=== PATIENT | male | born 1945 | race Caucasian/White ===

== ENCOUNTER → 2017-03-08 | Outpatient (CLI) | payer MEDICARE ==
[~2017-03-08] VITALS: Ht 180.3 cm; Wt 93.4 kg
[~2017-03-08] MED LIST: ALLO100T PO; ALLO300T PO; AMINOPHYLLINE IV ONE; AMLO10TA2 PO; ASCO500C PO; ASPI-484 PO; ATOR10TA PO; ATOR40TA PO; BEE580CA PO; CHOL400T10 PO; CINN500C2 PO; CLOP75TA22 PO; GARL1CAP PO; GLUC-103 PO; GLYB1TAB10 PO; HYDR12.58 PO; LEXISCAN IV ONE; LISI10TA2 PO; LOSA100T6 PO; MELO-174 PO; METO25TA9 PO; MULT-16 PO; NITR0.4T SL; NITR0.4T8 SL; VITA400C36 PO; [UNRECOGNIZED DRUG - CODE] PO
[2017-03-08 14:10] LABS: BASOPHIL % 0.3 % (0.0-0.2); EOSINOPHIL # 0.2 10^3/uL (0.0-0.2); EOSINOPHIL % 1.6 % (0.0-5.0); HEMATOCRIT 43.3 % (37.0-53.0); HEMOGLOBIN 14.7 g/dL (13.9-16.3); LYMPHOCYTES % 9.2 % (24.0-44.0); MEAN CELL HGB 31.7 pg (26-34); MEAN CELL HGB CONCENTRATION 33.9 g/dL (33-37); MEAN CORP VOLUME 93.5 fL (78-100); MEAN PLATELET VOLUME 9.7 fL (7.8-11.0); MONOCYTES # 0.8 10^3/uL (0.3-0.8); MONOCYTES % 6.9 % (5.0-12.0); NEUTROPHIL # 8.9 10^3/uL (1.8-7.7); NEUTROPHILS % 81.5 % (41.0-85.0); RED CELL DISTRIBUTION WIDTH 13.5 % (11.5-14.5); WHITE BLOOD CELL 10.9 10^3/uL (4.5-11.0)
[2017-03-08 14:30] LABS: CALCIUM 9.3 mg/dL (8.4-10.5); CARBON DIOXIDE 24.1 mmol/L (20.0-32); CHOLESTEROL 159 mg/dL (120-240); GLUCOSE 199 mg/dL (70-110); HDL CHOLESTEROL 45 mg/dL (32-96)
--- NOTE | 2017-03-09 14:06 | STRESS ---
DATE OF SERVICE: 03/08/2017 STRESS TEST WITH NUCLEAR IMAGING STUDY INDICATIONS: A 71-year-old gentleman with hyperlipidemia, diabetes mellitus, history of coronary artery disease with prior MIs in 2014, presented with chest pain and occasional shortness of breath. Stress test was recommended to follow up. The patient presented to the Stress Lab in a fasting condition on 03/08/2017, signed a proper consent with all questions answered. The patient was injected 0.4 mg of regadenoson followed by the stress dose of technetium sestamibi. Blood pressure at baseline was 135/80, heart rate of 79. After 1 minute of infusion blood pressure was 111/47, heart rate of 78 bpm. The patient developed some dizziness, nausea and his blood pressure dropped to 92/57 with a heart rate of 64. Aminophylline has to be given to reverse the effect. Recovery phase was uneventful. No EKG changes of ischemia noted. Myocardial perfusion imaging study was performed using 12.18 mCi of technetium sestamibi resting dose and 33.7 mCi of stress dose. Myocardial perfusion imaging study showed the followin. Study quality was fair. Attenuation artifact was corrected. Prone position was obtained. 2. Myocardial perfusion imaging study showed small anterobasal perfusion defect, reversible, suggestive of ischemia of a small area of the anterior wall. 3. Gated function study showed normal wall motion and wall thickening. EF was 60%, stroke volume 53 mL. IMPRESSION: 1. Abnormal stress portion of Lexiscan with hypotensive effect and a systolic blood pressure drop of more than [address] changes of ischemia noted or arrhythmia. 3. Myocardial perfusion imaging study showed a small anterobasal perfusion defect, reversible. 4. This study still qualifies for low to moderate risk for obstructive disease. Clinical correlation is recommended, especially for the abnormal stress portion of the examination. Keely Brown MD DR: EZE/oralia JOB# [id number] GIO
--- NOTE | 2017-03-16 11:35 | ECHO ---
DATE OF SERVICE: 03/08/2017 INDICATIONS: A 71-year-old gentleman with hypertension, elected for an echocardiographic study for evaluation of any wall motion abnormality, structural heart disease or cardiac valvular dysfunction for longstanding hypertension and possible hypertensive cardiomyopathy. FINDINGS: 1. Study quality was fair. 2. Underlying rhythm was sinus rhythm. 3. LV function showed an EF around 50%. Some apical hypokinesia. There is a mild degree of concentric LVH. LV dimensions showed increased cavity size. The end-diastolic dimension was around 6.5 cm. 4. RV size and EF were normal. 5. Both atria showed normal size. 6. Mitral valve was calcified minimally, grade 1 diastolic dysfunction was apparent with E to A reversal, no mitral stenosis. 7. Aortic valve showed aortic regurgitation, [id number]. Aortic valve mean velocity was 1.2 m/sec. Aortic valve area was 2.3 cm2 by VTI method, aortic sclerosis suggested, no stenosis. 8. Mild tricuspid regurgitation. 9. Normal pulmonary artery systolic pressure. 10. for the RV was 2.2 cm, normal. 11. No pericardial effusion. 12. Inferior vena cava was normal in size at 1.5 cm. IMPRESSION: 1. Preserved EF around 50%. 2. Moderate concentric LVH. 3. Apical hypokinesia. 4. Aortic sclerosis without stenosis. 5. Mild to moderate aortic regurgitation. 6. Calcified mitral valve without stenosis or regurgitation. 7. Grade 1 diastolic dysfunction. 8. Normal pulmonary artery systolic pressure. 9. No pericardial effusion. 10. IVC size was normal. Keely Brown MD DR: EZE/oralia JOB# [id number]
== END | disposition home or self-care (01) ==
LOC: RAD 08:33
PROVIDERS: ATTEND Internal Medicine
DX: I10 Essential (primary) hypertension (principal); E78.5 Hyperlipidemia, unspecified; R07.9 Chest pain, unspecified; E11.9 Type 2 diabetes mellitus without complications; R06.02 Shortness of breath
CPT/HCPCS: 36415; 78452; 80048; 80061; 85025; 93017; 93307; A9500; J0280; J2785

== ENCOUNTER 2017-04-05 01:14 | Inpatient (IN) | payer MEDICARE ==
[2017-04-03 10:03] VITALS: BP 145/93
--- NOTE | 2017-04-03 14:22 | DIREP ---
PROCEDURE:CHEST 2 VIEWS COMPARISON:None. INDICATIONS:PRE-OP HEART CATH FINDINGS: Frontal and lateral views of the chest are provided. LUNGS/PLEURA:No significant pulmonary parenchymal abnormalities. No effusion or pneumothorax. VASCULATURE:Normal. Unremarkable pulmonary vasculature. CARDIAC:Heart size is normal. Mild calcified plaque at the aortic knob. MEDIASTINUM:Normal. No visible mass or adenopathy. BONES:Remote healed fracture of the right clavicular midshaft. Mild degenerative changes involving the right acromioclavicular joint thoracic spine. No acute abnormality. OTHER:Negative. CONCLUSION: No acute cardiopulmonary abnormality. Dictated by: Lucien Gonzalez M.D. On 04/03/2017 at 02:20 PM
[~2017-04-05] VITALS: Ht 180.3 cm; Wt 94.3 kg
[~2017-04-05 01:14] MED LIST changes: -AMINOPHYLLINE IV ONE; +ATOR20TA PO; +GABA300C10 PO; +GLIM4TAB2 PO; -LEXISCAN IV ONE; +METF10002 PO; +NEBI5TAB2 PO; +PANT40TA5 PO; +VALS80TA3 PO
[2017-04-05] MEDS ORDERED: BENADRYL PO ONE ×2 (06:00→08:00)
[2017-04-05] MEDS ORDERED: NS 1000ML 1,000 ML ONE (06:37)
[2017-04-05] MEDS ORDERED: SUBLIMAZE ONE (06:38)
[2017-04-05] MEDS ORDERED: CALAN ONE (06:38)
[2017-04-05] MEDS ORDERED: VERSED ONE (06:38)
[2017-04-05] MEDS ORDERED: HEPARIN ONE ×2 (06:38→11:15)
[2017-04-05] MEDS ORDERED: XYLOCAINE ONE (06:39)
[2017-04-05] MEDS ORDERED: NITROGLYCERIN 25MG/D5W 250ML 250 ML IV ONE (06:39)
[2017-04-05 08:00] VITALS: BP 139/87
[2017-04-05] MEDS ORDERED: BRILINTA ONE (10:55)
[2017-04-05] MEDS ORDERED: ASPIRIN ONE (10:55)
[2017-04-05] MEDS ORDERED: TUMS ONE (10:56)
[2017-04-05] MEDS ORDERED: NORCO 5 MG PO PRN (11:30)
[2017-04-05] MEDS ORDERED: AMBIEN PO PRN (11:30)
--- NOTE | 2017-04-05 11:45 | NUR ---
PATIENT ARRIVED TO [facility] VIA STRETCHER FROM [employer] BUSINESS ANALYST PATIENT HAS STENT PLACEMENT X2 PO VITALS INITIATED TR BAND TO RIGHT WRIST WITH 13ML AIR NO HEMATOMA, BLEEDING OR OOZING NOTED
[2017-04-05] MEDS: NOVOLIN R SUBCUT SCH ×3 (12:00→21:00)
--- NOTE | 2017-04-05 12:38 | CCRH ---
DATE OF SERVICE: 04/05/2017 PROCEDURES PERFORMED: 1. Left heart catheterization via right radial artery access. 2. Selective coronary angiography, left and right. 3. Left ventricular end-diastolic pressure measurement. 4. Left ventriculography. 5. Angioplasty of the mid LAD with primary stenting using drug-eluting stent. 6. Heparin infusion with ACT monitoring. COMPLICATIONS: None. BLOOD LOSS: Minimal, less than 20 mL. INDICATIONS: 1. Abnormal stress test on 03/08/2017. 2. Established coronary artery disease with prior OK in 2014. 3. Symptoms of class 2 angina pectoris and dyspnea on exertion. 3. Multiple risk factors for coronary artery disease including diabetes mellitus, hypertension, and hyperlipidemia. HISTORY OF PRESENT ILLNESS: The patient is a 71-year-old gentleman, was subject to an acute myocardial infarction in 2014 requiring angioplasty of the RCA, he is known to have diabetes mellitus, hypertension and hyperlipidemia, started having new symptoms of chest pain and angina pectoris, class 2 angina despite being on antianginal medications including beta rachel and nitroglycerin. Stress test performed on 03/08/2017 showed an apical perfusion defect and hypotensive response to the stress portion of the exam. Given the symptoms, abnormality in the stress test and the established disease with multiple risk factors, he was elected for coronary angiography and possible intervention. DESCRIPTION OF PROCEDURE: The patient was brought into the [facility] in a fasting condition on 04/05/2017. He signed a proper consent, risks and benefits were explained. Lab results were reviewed and allergies were verified. The right wrist area was prepped in the proper fashion. 1% lidocaine was used for local analgesia. A 6-Chinese sheath was inserted in the right radial artery without difficulty followed by 5000 units of heparin given intravenously for radial protection. A 6-Chinese [place] catheter was utilized to engage left and right coronary arteries, followed by a pigtail insertion in the LV cavity for LVEDP measurement and power injection LV gram in the RIVERA projection. A de fadumo lesion in the mid LAD was noted, estimated angiographically to be between 70 and 75, concentric, hazy looking lesion, consistent with the apical perfusion defect in the stress perfusion scan. This lesion was a candidate for PCI given the angiographic appearance and the functional study with abnormality. Heparin was given as anticoagulation of choice. The patient also received Brilinta loading dose of 180 mg. An XBU-3 guiding catheter was advanced over the guidewire to engage the left main. A run-through wire was advanced across the LAD without difficulty after achieving an ACT above 300. Primary stenting was the approach of choice. Therefore, a 3.0 x 18 Resolute type drug-eluting stent was deployed successfully in the mid LAD reducing the lesion to 0% residual stenosis, TIMI3 flow without complications. Due to calcified vessel, I have decided to approach the post-stent dilatation using noncompliant balloon. Therefore, a 3.0 x 12 noncompliant balloon was advanced and utilized to post-dilate the lesion, 0% residual stenosis, TIMI3 flow noted with excellent stent apposition and no complication was seen. Therefore, the case was concluded with removal of the wires and catheters and application of TR band at the right radial artery access site for hemostasis. The patient tolerated the procedure well and left the [facility] in stable condition without any complication. He was educated on the results of coronary angiography and angioplasty. HEMODYNAMICS: 1. Central aortic pressure was 117/69, mean of 90 mmHg. 2. LVEDP was around 15 mmHg. 3. LV systolic function showed an EF of around 50-55% with apical hypokinesia. 4. A gradient of around 10-15 mmHg exists across the aortic valve on pullback of the pigtail catheter. 5. Ascending aorta was normal in size without apparent pathology. ANGIOGRAPHIC FINDINGS: 1. The right coronary artery is a dominant vessel, patent stent noted in the proximal and mid segment, mild disease seen in the mid segment around 30%, nonocclusive, TIMI3 flow seen. The vessel is dominant, distally bifurcates to PDA and PLV branches, which are medium size dominant vessel with moderate disease around 30-40%, has diffuse luminal irregularity. 2. Left main is a short vessel, normal in size, calcified, without obstructive disease, bifurcates to left anterior descending artery and left circumflex artery. 3. The left anterior descending artery is a calcified vessel with minimal ectasia proximally. The mid segment showed diffuse disease around 30%, followed by a discrete 70-75% hazy looking tubular concentric lesion. Distal LAD showed moderate disease around 40% at the apical segment. The diagonal branches are medium to small size vessels with diffuse disease around 30%. Septal branches were small, tortuous vessels without significant disease. 4. The circumflex artery is a nondominant vessel. The proximal part is large. The mid and distal is a small, nondominant vessel, giving rise to a significantly large, tortuous obtuse marginal branch with mild disease at the mid segment around 30%. INTERVENTION: The mid LAD lesion was treated successfully with 3.0 x 8 drug-eluting stent, Resolute type, advanced over a XBU-3 guiding catheter and run-through wire using heparin as anticoagulation. The stent was post-dilated using 3.0 x 12 noncompliant balloon. IMPRESSION: 1. Successful angioplasty of the mid LAD lesion using primary stenting with drug eluting stent in the setting of abnormal stress test and angiographic finding of significant lesion. 2. Patent stents in the RCA with moderate disease. 3. Dominant vessel of the RCA. 4. Large circumflex artery without significant disease, mild disease in the obtuse marginal. 5. The LAD has distal disease around 40% at the apical segment, residual. 6. Preserved EF around 55% with apical hypokinesia. 7. LVEDP was around 15 mmHg. 8. Aortic stenosis, mild to moderate with a gradient of around 10-15 mmHg. 9. The procedure was well tolerated without complications. RECOMMENDATIONS: 1. TR band protocol. 2. Dual antiplatelet therapy for another 12 months, preferably longer. 3. Optimize risk factors for secondary prevention of coronary artery disease, most importantly diabetes mellitus. 4. Observe the patient for 24 hours post-cardiac cath for any potential complications and adjustment of medications. Keely Brown MD DR: EZE/oralia JOB# [id number]
--- NOTE | 2017-04-05 13:15 | NUR ---
TR BAND DEFLATION BEGAN TEACHING TO PATIENT ON BLEEDING PRECAUTIONS IF PRESSURE IS APPLIED TO RIGHT WRIST OR RIGHT HAND IS OVERUSED PATIENT VERBALIZED UNDERSTANDING
--- NOTE | 2017-04-05 15:38 | NUR ---
patient called nurses station and stated he was bleeding pressure dressing to wrist saturated with blood pressure held x10 minutes redressed with clean dry pressure dressing Addendum: 04/05/17 at 1540 by Shereen Choi RN - drawing instructor Amended: Links added.
[2017-04-05] MEDS: NS 1000ML 1,000 ML IV SCH ×2 (19:12→21:13)
[2017-04-05 20:07] VITALS: BP 142/86
[2017-04-05] MEDS ORDERED: NEURONTIN PO SCH (21:00)
[2017-04-05] MEDS ORDERED: LIPITOR PO SCH (21:00)
[2017-04-05] MEDS: LOPRESSER PO SCH (21:38)
[2017-04-05] MEDS: TYLENOL PO SCH (21:41)
[2017-04-06 00:19] VITALS: BP 111/70
[2017-04-06] MEDS: NS 1000ML 1,000 ML IV SCH (02:18)
[2017-04-06 04:37] VITALS: BP 118/70
[2017-04-06 05:53] LABS: BASOPHIL % 0.5 % (0.0-0.2); EOSINOPHIL # 0.3 10^3/uL (0.0-0.2); EOSINOPHIL % 3.9 % (0.0-5.0); HEMATOCRIT 42.1 % (37.0-53.0); HEMOGLOBIN 14.2 g/dL (13.9-16.3); LYMPHOCYTES # 1.4 10^3/uL (1.0-4.8); LYMPHOCYTES % 18.8 % (24.0-44.0); MEAN CELL HGB 32.2 pg (26-34); MEAN CELL HGB CONCENTRATION 33.7 g/dL (33-37); MEAN CORP VOLUME 95.5 fL (78-100); MONOCYTES % 12.7 % (5.0-12.0); NEUTROPHIL # 4.9 10^3/uL (1.8-7.7); NEUTROPHILS % 63.7 % (41.0-85.0); RED CELL DISTRIBUTION WIDTH 13.3 % (11.5-14.5); WHITE BLOOD CELL 7.7 10^3/uL (4.5-11.0)
[2017-04-06 06:11] LABS: CALCIUM 8.3 mg/dL (8.4-10.5); CARBON DIOXIDE 25.4 mmol/L (20.0-32)
[2017-04-06] MEDS: NOVOLIN R SUBCUT SCH (08:00)
[2017-04-06] MEDS ORDERED: PROTONIX PO SCH (09:00)
[2017-04-06] MEDS ORDERED: DIOVAN PO SCH (09:00)
[2017-04-06] MEDS ORDERED: ZYLOPRIM PO SCH ×2 (09:00)
[2017-04-06] MEDS ORDERED: BYSTOLIC PO SCH (09:00)
[2017-04-06] MEDS ORDERED: PLAVIX PO SCH ×2 (09:00)
[2017-04-06] MEDS ORDERED: ASPIRIN EC PO SCH ×2 (09:00)
[2017-04-06] MEDS: LOPRESSER PO SCH (09:15)
[2017-04-06] MEDS: TYLENOL PO SCH (09:15)
[2017-04-06] MEDS ORDERED: ZYLOPRIM ONE (09:18)
[2017-04-06 09:23] VITALS: BP 147/90
--- NOTE | 2017-04-06 12:14 | NUR ---
DISCHARGE PLANNING: SS VISITED WITH PT AND REGARDING DISCHARGE PLANNING NEED. PT LIVES HOME WITH HIS IS VERY INDEPENDENT AND DENIES NEEDING ADDITIONAL RESOURCES AT THIS TIME. PT'S GOAL IS TO RETURN HOME WITH HIS TODAY TO ROUTINE SELF CARE. NO FURTHER NEEDS NOTED OR IDENTIFIED AT THIS TIME. PT SAFETY HANDOUT ADDRESSED, NO QUESTIONS ASKED, UNDERSTANDING VERBALIZED. SS TO CONTINUE TO MONITOR AND ASSIST WITH DISCHARGE PLANNING NEEDS.
[2017-04-06] MEDS ORDERED: TICA90TA PO (12:35)
--- NOTE | 2017-04-06 13:12 | PRM.DC ---
Discharge Summary Date of Arrival on Unit: April 03, 2017 Reason for Visit: coronary artery disease, abnormal stress test Additional Comments 71-year-old diabetic gentleman with history of coronary artery disease requiring angioplasty to the RCA in 2014, he is also known to have hypertension and hyperlipidemia. Has an abnormal stress test with anterior wall perfusion defect. Elected for coronary angiography on 04/05/2017 the radial access showing LAD disease consistent with the perfusion defect on the stress test. Enteroplasty with drug-eluting stent was performed with excellent results. Observation. Was free of complications, patient was switched to Brilinta, discharge instruction discussed in details and including therapeutic lifestyle modification and therapeutic intervention for risk factor modification Patient History: Alzheimer's disease 32 MOTHER, Age:87 Chronic obstructive pulmonary disease 33 FATHER, , Age:68 Diabetes mellitus 32 MOTHER, Age:87 G8 BROTHER, Age:57 FH: lupus 19 CHILD, Age:54 Hypertension 32 MOTHER, Age:87 No known health problems G8 BROTHER, Age:65 G8 BROTHER, Age:53 G8 SISTER, Age:56 19 CHILD, Age:46 No Family History of: Asthma Cerebrovascular disorder Congestive heart failure Diabetes insipidus Parkinson's disease History Present Illness: General: Alert, Oriented X3, Cooperative HEENT: Atraumatic, PERRLA, EOMI Neck: Supple, No JVD Lungs: Clear to auscultation Heart: Regular rate Abdomen: Normal bowel sounds Extremities: No clubbing, Other ( Right radial artery access site is free of complications) Scheduled Acetaminophen (Acetaminophen Extra Strength), 1,000 MG PO BID, (Reported) Allopurinol (Allopurinol), 1 TAB PO DAILY, (Reported) Allopurinol (Allopurinol), 1 TAB PO DAILY, (Reported) Ascorbic Acid (Vitamin C), 500 MG PO DAILY, (Reported) Aspirin (Aspir 81), 81 MG PO DAILY, (Reported) Atorvastatin 20MG (Lipitor 20MG), 1 TAB PO DAILY, (Reported) Cholecalciferol (Vitamin D3) (Vitamin D3), 800 PO DAILY, (Reported) Cinnamon Bark (Cinnamon), 500 MG PO DAILY, (Reported) Gabapentin (Gabapentin), 2 CAP PO HS, (Reported) Garlic (Garlic), 1 MG PO DAILY, (Reported) Glimepiride (Glimepiride), 1 TAB PO BID, (Reported) Gluc/Douglas-MSM#1/C/Aubrey/Elio/Bor (Osteo Bi-Flex Caplet), 1 EACH PO BID, (Reported) Hydrochlorothiazide (Hydrochlorothiazide), 12.5 MG PO DAILY, (Reported) Metformin Hcl (Metformin Hcl), 1 TAB PO BID, (Reported) Metoprolol Succinate (Metoprolol Succinate), 25 MG PO BID, (Reported) Multivitamin (Daily Vitamin), 1 EACH PO DAILY, (Reported) Nebivolol Hcl (Bystolic), 0.5 TAB PO DAILY, (Reported) Pantoprazole Sodium (Pantoprazole Sodium), 1 TAB PO DAILY, (Reported) Ticagrelor (Brilinta), 90 MG PO BID Valsartan (Diovan), 1 TAB PO DAILY, (Reported) Vitamin E Mixed (Vitamin E), 400 UNIT PO DAILY, (Reported) Scheduled PRN Nitroglycerin (Nitroglycerin), 0.4 MG SL for CHEST PAIN, (Reported) Discontinued Medications Atorvastatin 40MG (Lipitor 40MG), 1 TAB PO DAILY, (Reported) Discontinued Reason: No Longer Taking Bee Pollen (Bee Pollen), 580 MG PO DAILY, (Reported) Discontinued Reason: No Longer Taking Clopidogrel Bisulfate (Plavix), 1 TAB PO DAILY, (Reported) Discontinued Reason: Discontinue Glyburide/Metformin Hcl (Glyburide-Metformin 5-500 Mg), 1 EACH PO BID, (Reported ) Discontinued Reason: No Longer Taking Lisinopril (Lisinopril), 1 TAB PO DAILY, (Reported) Discontinued Reason: No Longer Taking Nitroglycerin (Nitrostat), 0.4 MG SL PRN PRN for CHEST PAIN Discontinued Reason: No Longer Taking Course Blood Pressure Systolic: 147 Blood Pressure Diastolic: 90 Blood Pressure Mean: 109 Plan Assessment - coronary artery disease - angioplasty of the LAD with drug-eluting stents - abnormal stress test - diabetes mellitus - hypertension and hyperlipidemia Discharge Disposition: Stable Plan - aspirin 81 mg by mouth daily, Brilinta 90 mg by mouth twice a day - target hemoglobin A1c less than 7 - target LDL less than 70 - cardiac cath discharge instructions - therapeutic lifestyle modifications - outpatient follow-up MARY GALARZA MD April 06, 2017 13:12
[2017-04-06 15:32] VITALS: BP 139/82
== END 2017-04-06 13:09 | disposition home or self-care (01) | DRG 247 ==
LOC: SDC 01:14 → MS 11:13
PROVIDERS: ADMIT Internal Medicine; ATTEND Internal Medicine
PROC: 4A023N7 Measurement of Cardiac Sampling and Pressure, Left Heart, Percutaneous Approach (ICD-10-PCS; principal; 2017-04-05)
PROC: 027034Z Dilation of Coronary Artery, One Artery with Drug-eluting Intraluminal Device, Percutaneous Approach (ICD-10-PCS; 2017-04-05)
PROC: B2111ZZ Fluoroscopy of Multiple Coronary Arteries using Low Osmolar Contrast (ICD-10-PCS; 2017-04-05)
PROC: B2151ZZ Fluoroscopy of Left Heart using Low Osmolar Contrast (ICD-10-PCS; 2017-04-05)
DX: I25.119 Atherosclerotic heart disease of native coronary artery with unspecified angina pectoris (principal); I35.0 Nonrheumatic aortic (valve) stenosis; I10 Essential (primary) hypertension; M1A.9XX0 Chronic gout, unspecified, without tophus (tophi); E11.9 Type 2 diabetes mellitus without complications; E78.5 Hyperlipidemia, unspecified; Z79.82 Long term (current) use of aspirin; Z79.1 Long term (current) use of non-steroidal anti-inflammatories (NSAID); Z79.899 Other long term (current) drug therapy; I25.2 Old myocardial infarction; Z82.5 Family history of asthma and other chronic lower respiratory diseases; Z83.3 Family history of diabetes mellitus; Z82.49 Family history of ischemic heart disease and other diseases of the circulatory system; Z82.0 Family history of epilepsy and other diseases of the nervous system; Z79.84 Long term (current) use of oral hypoglycemic drugs
CPT/HCPCS: 36415; 71020; 80048; 80061; 82948; 83036; 85025; 85610; 93005; 93458; C1769; C1887; C1894; C9600; J1644; J2250; J3010; J3490; J7030; Q0163; Q9967; C1724; C1876

== ENCOUNTER → 2017-08-06 | Outpatient (CLI) | payer MEDICARE ==
[~2017-08-06] MED LIST changes: +TICA90TA PO
--- NOTE | 2017-08-06 16:45 | DIREP ---
PROCEDURE:US ANKLE BRACHIAL INDEX COMPARISON:None. INDICATIONS:DIABETES, PVD TECHNIQUE:A color duplex Doppler ultrasound examination of the bilateral lower extremities was performed. Color image and bidirectional spectral Doppler wave form analysis, and peak systolic flow measurements of the posterior tibial and dorsalis pedis arteries were performed. FINDINGS: RIGHT LOWER EXTREMITY: FLORENCIO DP: 1.1 PT: 1.2 POSTERIOR TIBIAL:71.0 cm/sbiphasic DORSALIS PEDIS:71.5 cm/sbiphasic LEFT LOWER EXTREMITY: FLORENCIO DP: 1.2 PT: 1.3 POSTERIOR TIBIAL:51.6 cm/sbiphasic DORSALIS PEDIS:63.3 cm/sbiphasic CONCLUSION:No hemodynamically significant stenosis. ABIs greater than 1.4 indicate noncompressible vessels, likely to have significant peripheral vascular disease (PVD). ABIs of 0.91 to 1.3 indicate no significant obstructive disease. ABIs of 0.41 to 0.90 indicate grade I claudication. ABIs less than 0.4 indicate limb-threatening ischemia of grade I or grade II. Dictated by: KIYA Physician on 08/06/2017 at 04:31 PM Read in [place] ld
== END | disposition home or self-care (01) ==
LOC: RAD 09:38
PROVIDERS: ATTEND Internal Medicine
DX: I73.9 Peripheral vascular disease, unspecified (principal); E11.9 Type 2 diabetes mellitus without complications
CPT/HCPCS: 93922

== ENCOUNTER 2018-01-22 00:24 | Observation (INO) | payer MEDICARE ==
[2018-01-21 09:29] VITALS: BP 145/84
[2018-01-21 09:53] LABS: BASOPHIL % 0.4 % (0.0-0.2); EOSINOPHIL # 0.3 10^3/uL (0.0-0.2); EOSINOPHIL % 3.8 % (0.0-5.0); LYMPHOCYTES # 1.1 10^3/uL (1.0-4.8); LYMPHOCYTES % 12.6 % (24.0-44.0); MEAN CELL HGB 31.7 pg (26-34); MEAN CELL HGB CONCENTRATION 32.8 g/dL (33-37); MEAN CORP VOLUME 96.6 fL (78-100); MEAN PLATELET VOLUME 9.7 fL (7.8-11.0); MONOCYTES # 0.7 10^3/uL (0.3-0.8); MONOCYTES % 8.6 % (5.0-12.0); NEUTROPHIL # 6.2 10^3/uL (1.8-7.7); NEUTROPHILS % 73.9 % (41.0-85.0); RED CELL DISTRIBUTION WIDTH 13.4 % (11.5-14.5); WHITE BLOOD CELL 8.3 10^3/uL (4.5-11.0)
--- NOTE | 2018-01-21 09:57 | DIREP ---
PROCEDURE:CHEST 2 VIEWS COMPARISON:[facility], CR, XRAY CHEST 2 VWS, 04/03/2017, 10:00 AM. INDICATIONS:PRE-OP HEART CATH, CAD FINDINGS: LUNGS/PLEURA:No confluent pulmonary infiltrate. No effusions. No pneumothorax. VASCULATURE:Unremarkable pulmonary vasculature. CARDIAC:No cardiac silhouette abnormality or cardiomegaly. MEDIASTINUM:No visible mass or adenopathy. BONES:Mild height loss along the superior endplate of a mid thoracic vertebral body, unchanged. Healed fracture of the right clavicle. OTHER:Negative. CONCLUSION:No acute cardiopulmonary abnormality. Dictated by: Rosi Keys MD on 01/21/2018 at 09:55 AM
[2018-01-21 10:09] LABS: CALCIUM 9.1 mg/dL (8.4-10.5); CARBON DIOXIDE 22.7 mmol/L (20.0-32)
--- NOTE | 2018-01-21 12:17 | PCM.EKG ---
[facility] Test Date: 2018-01-21 Test Time: 09:34:24 Pat Name: DAVE JAQUEZ Department: Room: Gender: M Jackscrew Man: DURAN : 1945 Requested By: MARY GALARZA Order Number: [id number] Reading MD: Measurements Intervals [place] Rate: 76 P: 65 MD: 210 QRS: 18 QRSD: 92 T: 30 QT: 384 QTc: 432 Interpretive Statements Sinus rhythm with 1st degree AV block Otherwise normal ECG No previous ECG available for comparison Please click the below link to view image of tracing.
[~2018-01-22] VITALS: Ht 180.3 cm; Wt 92.1 kg
[~2018-01-22 00:24] MED LIST changes: -CLOP75TA22 PO; +CLOP75TA52 PO; -GLYB1TAB10 PO; +GLYB1TAB15 PO; +LORA10TA75 PO; -MELO-174 PO; +MELO15TA24 PO; +METO-236 PO; -METO25TA9 PO; +NITR0.4T26 SL; -NITR0.4T8 SL; +SITA100T PO; +TADA5TAB PO
[2018-01-22] MEDS ORDERED: BENADRYL PO ONE ×2 (06:00)
[2018-01-22] MEDS ORDERED: XYLOCAINE ONE (06:29)
[2018-01-22] MEDS ORDERED: SUBLIMAZE ONE (06:29)
[2018-01-22] MEDS ORDERED: VERSED ONE (06:29)
[2018-01-22] MEDS ORDERED: NS 1000ML 1,000 ML ONE (06:29)
[2018-01-22] MEDS ORDERED: HEPARIN ONE ×2 (06:29→14:06)
[2018-01-22] MEDS ORDERED: CALAN ONE (06:29)
[2018-01-22 08:54] VITALS: BP 147/99
[2018-01-22] MEDS ORDERED: ASPIRIN ONE (13:46)
[2018-01-22] MEDS ORDERED: BRILINTA ONE (13:46)
[2018-01-22] MEDS ORDERED: AMBIEN PO PRN (14:30)
[2018-01-22] MEDS ORDERED: TYLENOL PO PRN (14:30)
[2018-01-22] MEDS ORDERED: NORCO 5MG PO PRN (14:30)
[2018-01-22] MEDS: NS 1000ML 1,000 ML IV SCH ×2 (14:52→21:27)
[2018-01-22 14:54] VITALS: BP 137/81
--- NOTE | 2018-01-22 15:12 | PCM.EKG ---
[facility] Test Date: 2018-01-22 Test Time: 15:09:12 Pat Name: DAVE JAQUEZ Department: Room: 304 Gender: M Bowling Ball Grader: RT : 1945 Requested By: MARY GALARZA Order Number: [id number] Reading MD: Measurements Intervals [place] Rate: 72 P: 59 DE: 210 QRS: 28 QRSD: 86 T: 48 QT: 396 QTc: 433 Interpretive Statements Sinus rhythm with 1st degree AV block Otherwise normal ECG No previous ECG available for comparison Please click the below link to view image of tracing.
[2018-01-22] MEDS: AMARYL PO SCH (16:07)
[2018-01-22] MEDS ORDERED: BRILINTA PO SCH (21:00)
[2018-01-22] MEDS ORDERED: NEURONTIN PO SCH (21:00)
[2018-01-22] MEDS ORDERED: LIPITOR PO SCH (21:00)
[2018-01-22] MEDS: BRILINTA PO SCH (21:22)
[2018-01-23 00:31] VITALS: BP 137/81
[2018-01-23 04:10] VITALS: BP 127/70
[2018-01-23 05:25] LABS: BASOPHIL % 0.5 % (0.0-0.2); EOSINOPHIL # 0.2 10^3/uL (0.0-0.2); EOSINOPHIL % 2.9 % (0.0-5.0); HEMOGLOBIN 12.6 g/dL (13.9-16.3); LYMPHOCYTES # 1.2 10^3/uL (1.0-4.8); LYMPHOCYTES % 14.8 % (24.0-44.0); MEAN CELL HGB 32.1 pg (26-34); MEAN CELL HGB CONCENTRATION 33.2 g/dL (33-37); MEAN CORP VOLUME 96.7 fL (78-100); MEAN PLATELET VOLUME 9.5 fL (7.8-11.0); MONOCYTES # 0.9 10^3/uL (0.3-0.8); MONOCYTES % 10.4 % (5.0-12.0); NEUTROPHIL # 5.8 10^3/uL (1.8-7.7); NEUTROPHILS % 70.9 % (41.0-85.0); RED CELL DISTRIBUTION WIDTH 13.3 % (11.5-14.5); WHITE BLOOD CELL 8.2 10^3/uL (4.5-11.0)
[2018-01-23 05:58] LABS: CALCIUM 8.4 mg/dL (8.4-10.5); CARBON DIOXIDE 24.6 mmol/L (20.0-32)
[2018-01-23] MEDS: NS 1000ML 1,000 ML IV SCH (06:28)
--- NOTE | 2018-01-23 07:15 | [facility] ---
DATE OF SERVICE: 01/22/2018 PROCEDURES PERFORMED: 1. Left and right coronary angiography via right radial artery access. 2. Angioplasty of the mid LAD with 2 drug-eluting stents, primary stenting. 3. Angioplasty of the right PDA with drug-eluting stent, primary stenting. 4. Balloon angioplasty of the mid RCA. 5. Heparin infusion with ACT monitoring. COMPLICATIONS: None. BLOOD LOSS: 15-20 mL of blood loss. INDICATIONS: The patient is a 72-year-old diabetic gentleman with poorly controlled risk factors for CAD. He has an extensive CAD requiring multiple angioplasties, most recent was in 2017. This patient has multiple heart caths and every coronary angiography would reveal a new obstructive lesion in his coronary anatomy due to multiple poorly controlled risk factors, mainly diabetes mellitus. The patient presented with 3 weeks of progressive angina, shortness of breath. He is determined to have progressive and aggressive coronary artery disease with atherosclerotic disease burden considered to be high. He has high pretest probability for further testing given the fact that he has multiple stress tests in the past, the most recent was in mid 2017 showing anterior wall ischemia. The patient was elected for coronary angiography to evaluate and treat unstable angina symptoms with high burden of coronary artery disease and atherosclerosis. DESCRIPTION OF PROCEDURE: He presented to the [facility] in a fasting condition, signed a proper consent, risk and benefits were explained, all questions were answered. Lab results reviewed. Right wrist area was prepped and draped and sterilized in proper fashion, 1% lidocaine was used for local analgesia. A 6-Nepali sheath was inserted in the right radial artery without difficulty. The patient received 5000 units of heparin at radial access time for radial protection. A 6-Nepali Lester catheter was advanced over the guidewire into the ascending aorta for selective engagement of left and right coronary arteries. LV gram was avoided to minimize contrast exposure with established LV function to be normal and with mild renal impairment. Coronary examination showed a new lesion into the distal segment of the mid LAD, considered significant with disease burden of around 70-80% tandem lesions including mild in-stent restenosis in a recently deployed mid LAD stent. The vessel is otherwise diffusely diseased, especially in the distal segment. There was also a new de fadumo lesion critical around 80-85% in the proximal part of the dominant right PDA. Decision was made to proceed with angioplasty of those lesions, given the heparin to be therapeutic using ACT monitoring. I managed to advance an XBU-3 guiding catheter into the ascending aorta for LAD intervention. A run-through wire was advanced successfully in the RIVERA projection into the distal LAD. The LAD received 2 stents for treatment. The stents were 2.5 x 23 Xience Alpine drug-eluting stent in the distal part of the mid LAD followed by a shorter stent measuring 2.75 x 12 Xience Alpine drug-eluting stent to cover the area between the previously deployed stent and the new stent. There was 0% residual stenosis in the mid LAD. Excellent results were achieved without complication at different projections. After LV angioplasty, attention was diverted to perform angioplasty of the RCA. A JR4 guiding catheter was advanced over the guidewire to engage the RCA with therapeutic ACT levels. I managed to readvance the run-through wire into the distal portion of the RPDA. The RCA itself showed this de fadumo lesion in the RPDA, which was treated successfully using 2.5 x 12 Xience Alpine drug-eluting stent deployed at high pressure with 0% residual stenosis, TIMI3 flow. There was some irregularity in the previously deployed mid LAD stent. That irregularity could compose in-stent restenosis and possible ectasia in the vessel. Therefore, I managed to advance a 3.0 x 15 noncompliant balloon and performed high pressure angioplasty in the mid RCA that helped some with the irregularity on the sides of the stent of a previously deployed metallic scaffold. ACT was therapeutic during the intervention. The patient had no complication. Case concluded with removal of wires and catheter and application of TR band for hemostasis. The patient left the [facility] in stable condition. He received a reloading dose of 90 mg of Brilinta. HEMODYNAMICS: Opening pressure at the central aorta was 141/69, mean of 101 mmHg. ANGIOGRAPHIC FINDINGS: 1. The right coronary artery showed patent stent in the proximal and mid segment with in-stent restenosis around 30-40% with irregularity and mild ectasia. Distal RCA showed minimal disease. The proximal RPDA dominant vessel showed a 80-85% discrete lesion, high grade. The vessel is dominant with diffusely diseased small acute marginal branches. 2. The left main is short, calcified, minimally diseased around 20% vessels. 3. The LAD showed mild disease proximally around 20-25%, patent stent in the mid segment with mild in-stent restenosis. The distal part of the mid LAD showed tandem lesions around 70-80% diseased. The distal LAD showed 50% diffuse disease in a small size vessel. The diagonal branches are small, tortuous vessels with diffuse nonobstructive disease. 4. The circumflex artery is a nondominant vessel, starts as a large size vessel with mild disease, tapers down to small vessel distally with mild disease. The obtuse marginal branch is moderately diseased with around 30-40% in the proximal segment. INTERVENTION: The LAD was engaged with the XBU-3 guiding catheter and run-through wire. Two stents were deployed successfully in the mid LAD treating the tandem 70-80% lesion to 0% residual stenosis using 2.5 x 23 and 2.75 x 12 Xience Alpine drug-eluting stent with 1-2 struts overlapping and overlapped also with the previously deployed stent in the proximal part of the mid LAD. The RCA/RPDA was treated successfully with primary stenting using 2.5 x 12 Xience Alpine drug-eluting stent reducing the 80-85% lesion to 0% disease and excellent results without complication. The mid RCA in-stent restenotic lesion was treated successfully with high pressure 3.0 compliant balloon angioplasty. IMPRESSION: 1. Successful angioplasty of 2 de fadumo lesions in the mid LAD and proximal RPDA using 3 drug-eluting stents in the setting of unstable angina, high burden CAD with progressive and aggressive coronary artery disease. 2. Mild left main disease with calcification. 3. Mild in-stent restenosis with ectasia in the mid RCA. 4. The procedure was well tolerated without complication. RECOMMENDATIONS: 1. Optimize antiplatelet therapy, preferably for lifetime. 2. Aggressive medical management to optimize risk factor modification, mainly diabetes mellitus and hyperlipidemia. 3. Therapeutic lifestyle modifications were addressed. 4. TR band protocol. 5. The patient will be admitted to the observation service to monitor for any post-procedural complication, mainly ischemia or infarction versus bleeding. 6. Monitor kidney function with mild renal impairment. 7. The patient and the family were educated on the diagnosis, prognosis, and procedure performed with results. Keely Brown MD DR: EZE/oralia JOB# [id number]
[2018-01-23 07:24] VITALS: BP 123/75
[2018-01-23] MEDS ORDERED: THERA PO SCH (09:00)
[2018-01-23] MEDS ORDERED: DIOVAN PO SCH (09:00)
[2018-01-23] MEDS: BRILINTA PO SCH (09:00)
[2018-01-23] MEDS ORDERED: HYDROCHLOROTHIAZIDE PO SCH (09:00)
[2018-01-23] MEDS ORDERED: ZYLOPRIM PO SCH (09:00)
[2018-01-23] MEDS ORDERED: PROTONIX PO SCH (09:00)
[2018-01-23] MEDS ORDERED: ASPIRIN EC PO SCH ×2 (09:00)
[2018-01-23] MEDS ORDERED: BYSTOLIC PO SCH (09:00)
[2018-01-23] MEDS ORDERED: CLARITIN PO SCH (09:00)
--- NOTE | 2018-01-23 09:05 | PRM.DC ---
Discharge Summary Date of Discharge: Jan 23, 2018 Reason for Visit: Coronary artery disease Additional Comments 70-year-old diabetic gentleman with hypertension hyperlipidemia on optimal medical therapy. Was evaluated by cardiac cath for progressive angina. Coronary angiography on 01/15/2017 showed LAD and RCA/PDA lesions required angioplasty. 3 drug-eluting stents were deployed successfully. Patient was observed overnight, radial artery access sites showed no evidence of any complication. Patient remained is symptomatic. Lab results reviewed that showed hemoglobin A1c of 6.7 and favorable lipid panel. Patient History: Alzheimer's disease 32 MOTHER, Age:87 Chronic obstructive pulmonary disease 33 FATHER, , Age:68 Diabetes mellitus 32 MOTHER, Age:87 G8 BROTHER, Age:57 FH: lupus 19 CHILD, Age:54 Hypertension 32 MOTHER, Age:87 No known health problems G8 BROTHER, Age:65 G8 BROTHER, Age:53 G8 SISTER, Age:56 19 CHILD, Age:46 No Family History of: Asthma Cerebrovascular disorder Congestive heart failure Diabetes insipidus Parkinson's disease History Present Illness: General: Alert, Oriented X3, Cooperative HEENT: Atraumatic, PERRLA, EOMI Neck: Supple, No JVD Lungs: Clear to auscultation, Normal air movement Heart: Regular rate, Normal S1 Abdomen: Normal bowel sounds, Soft Extremities: No clubbing, No cyanosis Scheduled Allopurinol (Allopurinol), 1 TAB PO DAILY, (Reported) Ascorbic Acid (Vitamin C), 500 MG PO DAILY, (Reported) Aspirin (Aspir 81), 81 MG PO DAILY, (Reported) Atorvastatin 20MG (Lipitor 20MG), 1 TAB PO HS, (Reported) Cholecalciferol (Vitamin D3) (Vitamin D3), 800 PO DAILY, (Reported) Cinnamon Bark (Cinnamon), 500 MG PO DAILY, (Reported) Gabapentin (Gabapentin), 1 CAP PO HS, (Reported) Garlic (Garlic), 1 MG PO DAILY, (Reported) Glimepiride (Glimepiride), 1 TAB PO DAILY24, (Reported) Gluc/Douglas-MSM#1/C/Aubrey/Elio/Bor (Osteo Bi-Flex Caplet), 1 EACH PO BID, (Reported) Hydrochlorothiazide (Hydrochlorothiazide), 12.5 MG PO DAILY, (Reported) Loratadine (Claritin), 1 TAB PO DAILY, (Reported) Metformin Hcl (Metformin Hcl), 1 TAB PO BID, (Reported) Multivitamin (Daily Vitamin), 1 EACH PO DAILY, (Reported) Nebivolol Hcl (Bystolic), 1 TAB PO DAILY, (Reported) Pantoprazole Sodium (Pantoprazole Sodium), 1 TAB PO DAILY, (Reported) Sitagliptin Phosphate (Januvia), 1 TAB PO DAILY, (Reported) Ticagrelor (Brilinta), 90 MG PO BID Valsartan (Diovan), 1 TAB PO DAILY, (Reported) Vitamin E Mixed (Vitamin E), 400 UNIT PO DAILY, (Reported) Scheduled PRN Acetaminophen (Acetaminophen Extra Strength), 1,000 MG PO BID PRN for PAIN, ( Reported) Nitroglycerin (Nitroglycerin), 0.4 MG SL for CHEST PAIN, (Reported) Tadalafil (Cialis), 4 TAB PO DAILY PRN for PRN, (Reported) Discontinued Medications Allopurinol (Allopurinol), 1 TAB PO DAILY, (Reported) Discontinued Reason: No Longer Taking Metoprolol Succinate (Metoprolol Succinate), 25 MG PO BID, (Reported) Discontinued Reason: No Longer Taking Sepsis Evaluation @ Discharge Course Blood Pressure Systolic: 123 Blood Pressure Diastolic: 75 Blood Pressure Mean: 91 Plan Assessment - Coronary artery disease status post successful angioplasty of the LAD and RPDA with 3 drug-eluting stents -multiple CAD risk factors with diabetes mellitus, hypertension and hyperlipidemia on multiple optimal medical therapy Discharge Disposition: Stable Plan -Dual antiplatelet therapy with aspirin and Brilinta - hold metformin for 24 hours post cath - follow-up with Dr. Neely in 2-3 weeks MARY GALARZA MD Jan 23, 2018 09:05
[2018-01-23] MEDS: AMARYL PO SCH (09:21)
== END 2018-01-23 11:07 | disposition home or self-care (01) ==
LOC: SDC 00:24 → MS 14:30
PROVIDERS: ADMIT Internal Medicine; ATTEND Internal Medicine
DX: I25.118 Atherosclerotic heart disease of native coronary artery with other forms of angina pectoris (principal); E11.9 Type 2 diabetes mellitus without complications; I73.9 Peripheral vascular disease, unspecified; E78.2 Mixed hyperlipidemia; I10 Essential (primary) hypertension; M1A.9XX0 Chronic gout, unspecified, without tophus (tophi); Z68.28 Body mass index [BMI] 28.0-28.9, adult; Z98.61 Coronary angioplasty status; Z98.890 Other specified postprocedural states
CPT/HCPCS: 36415; 71046; 80048; 80061; 82948; 83036; 85025; 85610; 92920; 93005; 93454; 99152; 99153; C1769; C1887; C1894; C9600; G0378; J1644; J2250; J3010; J3490; J7030; Q0163; Q9967; Q9966